=== PATIENT | female | born 1970 ===

== ENCOUNTER 2017-05-27 19:51 | Emergency (ER) | payer MEDICARE, OTHER ==
[~2017-05-27] VITALS: Ht 160 cm; Wt 66.7 kg
[2017-05-27] MEDS ORDERED: LISINOPRIL-HCTZ PO (20:53)
[2017-05-27] MEDS ORDERED: Crutch1 EACH UD (21:46)
== END 2017-05-27 21:53 | disposition home or self-care (01) ==
LOC: ER 19:51
DX: S90.31XA Contusion of right foot, initial encounter (principal); I10 Essential (primary) hypertension; Z90.49 Acquired absence of other specified parts of digestive tract; Z90.710 Acquired absence of both cervix and uterus; W20.8XXA Other cause of strike by thrown, projected or falling object, initial encounter
CPT/HCPCS: 73610; 73630; 99283

== ENCOUNTER 2017-06-30 17:08 | Emergency (ER) | payer MEDICARE, OTHER ==
[~2017-06-30] VITALS: Ht 160 cm; Wt 65.3 kg
[~2017-06-30 17:08] MED LIST: Crutch1 EACH UD; LISINOPRIL-HCTZ PO
[2017-06-30] MEDS ORDERED: Tylophen500 MG PO (17:59)
== END 2017-06-30 18:11 | disposition home or self-care (01) ==
LOC: ER 17:08
DX: S50.12XA Contusion of left forearm, initial encounter (principal); Z88.1 Allergy status to other antibiotic agents; Z88.8 Allergy status to other drugs, medicaments and biological substances; Z79.899 Other long term (current) drug therapy; I10 Essential (primary) hypertension; J45.909 Unspecified asthma, uncomplicated; W20.8XXA Other cause of strike by thrown, projected or falling object, initial encounter
CPT/HCPCS: 73090; 99283